=== PATIENT | female | born 1970 | race American Indian/Alaskan Native ===

== ENCOUNTER 2017-09-09 13:18 | Emergency (ER) | payer MEDICAID ==
[2017-09-09 13:39] VITALS: BMI 54.8
--- NOTE | 2017-09-09 17:55 | RAD ---
PROCEDURE: Right Knee Radiographs. HISTORY: knee pain COMPARISON: None. FINDINGS: BONES: Normal. No fracture. JOINTS: Normal. No osteoarthritis. JOINT EFFUSION: None. OTHER FINDINGS: None. IMPRESSION: Normal radiographs of the right knee.
[2017-09-09] MEDS ORDERED: Oxycodone/Acetaminophen 5/325 mg Tab PO STA (18:07)
--- NOTE | 2017-09-09 20:29 | CT ---
EXAM: CT Right Lower Extremity Without Intravenous Contrast, Knee EXAM DATE/TIME: 09/09/2017 6:19 PM CLINICAL HISTORY: The patient age is 46 years old and is female; Pain; Knee; Right; Additional info: Right knee pain/ inability to ambulate Facility exam id and description: Ct extlowsr ext lower w/o contrast right TECHNIQUE: Axial computed tomography images of the right knee without intravenous contrast. All CT scans at this facility use one or more dose reduction techniques, viz.: automated exposure control; ma/kV adjustment per patient size (including targeted exams where dose is matched to indication; i.e. head); or iterative reconstruction technique. Coronal and sagittal reformatted images were created and reviewed. COMPARISON: DX - KNEE W PATELLA RIGHT 3 VIEW 2017-09-09 16:18 FINDINGS: Bones/joints: There is no acute fracture or dislocation of the right knee. There is a small patellofemoral joint effusion. A small ossicle is visualized posterior to the knee. There is a decrease in height of the medial compartment with spurring, consistent with degenerative change. There is mild degenerative spurring in the lateral compartment of the knee. Soft tissues: There is mild soft tissue swelling anterior to the patella and patellar tendon. No significant Randhawa's cyst is visualized. CT is suboptimal for the evaluation of ligaments, tendons, and menisci. Vasculature: Venous varicosities are visualized. IMPRESSION: 1. There is no acute fracture or dislocation of the right knee. 2. There is a small patellofemoral joint effusion. 3. Degenerative changes are noted above. 4. There is mild soft tissue swelling anterior to the patella and patellar tendon. 5. Incidental/non-acute findings are described above.
--- NOTE | 2017-09-09 20:50 | ED PDOC ---
Arrival/HPI - General Chief Complaint: Lower Extremity Problem/Injury Time Seen by Provider: 09/09/17 14:21 Historian: Patient - History of Present Illness Narrative History of Present Illness (Text): 09/09/17 20:45 46-year-old female presents today with right knee pain. Patient says she's been having pain to the right knee recently. Patient states she started exercising more. Patient states when she was running on the treadmill last week she noticed that she had some pain to the right knee. Patient states the pain worsened yesterday when she was trying to do jumping jacks. Patient states she felt as if the knee gave out causing her to fall. Patient states she did not land on the knee. Patient denies numbness weakness or tingling in the extremity. Patient states due to the severe pain she is unable to walk well. Patient took Motrin for pain at home without improvement. Patient denies calf pain. Denies hip pain. Denies chest pain or shortness of breath. Patient denies any other complaints. Past Medical History - Provider Review Nursing Documentation Reviewed: Yes - Travel History Have you recently traveled outside [place] w/in the past 3 mons?: No - Tetanus Immunization Tetanus Immunization: Unknown - Cardiac Hx Atrial Fibrillation: Yes - Pulmonary Hx Asthma: Yes Hx Bronchitis: Yes Hx Pneumonia: Yes - Neurological Hx Neurological Disorder: No - HEENT Hx HEENT Disorder: No - Renal Hx Renal Disorder: No - Endocrine/Metabolic Hx Endocrine Disorders: No - Hematological/Oncological Hx Blood Disorders: No - Integumentary Hx Dermatological Disorder: No - Musculoskeletal/Rheumatological Hx Musculoskeletal Disorders: No - Gastrointestinal Hx Gastrointestinal Disorders: No - Genitourinary/Gynecological Hx Genitourinary Disorders: No - Psychiatric Hx Psychophysiologic Disorder: No Hx Substance Use: No Family/Social History - Physician Review Nursing Documentation Reviewed: Yes Family/Social History: Unknown Family HX Smoking Status: Never Smoked Hx Alcohol Use: No Hx Substance Use: No Allergies/Home Meds Allergies/Adverse Reactions: Allergies No Known Allergies Allergy (Verified 09/09/17 13:39) Home Medications: Home Meds Medication Instructions Recorded Confirmed Albuterol Sulfate [Proventil Hfa] 0 mg IH DAILY 09/09/17 09/09/17 Review of Systems - Review of Systems Constitutional: absent: Fatigue, Fevers Respiratory: absent: SOB, Cough Cardiovascular: absent: Chest Pain, Palpitations Gastrointestinal: absent: Abdominal Pain, Nausea, Vomiting Musculoskeletal: Arthralgias Skin: absent: Rash, Pruritis Neurological: absent: Headache, Dizziness Psychiatric: absent: Anxiety, Depression Physical Exam Vital Signs Reviewed: Yes Vital Signs Temp Pulse Resp BP Pulse Ox 09/09/17 13:40 98.3 F 81 19 128/82 97 Temperature: Afebrile Blood Pressure: Normal Pulse: Regular Respiratory Rate: Normal Appearance: Positive for: Well-Appearing, Non-Toxic, Comfortable Pain Distress: None Mental Status: Positive for: Alert and Oriented X 3 - Systems Exam Head: Present: Atraumatic Mouth: Present: Moist Mucous Membranes Neck: Present: Normal Range of Motion Respiratory/Chest: Present: Clear to Auscultation Cardiovascular: Present: Regular Rate and Rhythm Upper Extremity: Present: Normal Inspection, Normal ROM Lower Extremity: Present: Normal Inspection, NORMAL PULSES, Tenderness (right knee; + ttp over anterior medial aspect of the knee; minimal edema; no erythema ; no ecchymosis; limited flexion of the knee. no posterior knee tenderness. no ttp over distal femur. pelvis stable. ), Swelling, Neurovascularly Intact, Capillary Refill < 2 s. No: CALF TENDERNESS, Normal ROM, Erythema, Deformity, Temperature Abnormalties Neurological: Present: GCS=15, Speech Normal Skin: Present: Warm, Dry, Normal Color. No: Rashes Psychiatric: Present: Alert, Oriented x 3 Medical Decision Making ED Course and Treatment: 09/09/17 20:50 Patient nontoxic well-appearing in no distress with stable vital signs. Patient complaining of severe right knee pain status post injury yesterday Toradol given for pain without improvement. X-rays of the knee: No fracture Patient reassessment: Patient still with continued pain to the knee. Morphine added. Patient states she is unable to ambulate will do CAT scan of the need to rule out occult fracture. CAT scan of the right knee:FINDINGS: Bones/joints: There is no acute fracture or dislocation of the right knee. There is a small patellofemoral joint effusion. A small ossicle is visualized posterior to the knee. There is a decrease in height of the medial compartment with spurring, consistent with degenerative change. There is mild degenerative spurring in the lateral compartment of the knee. Soft tissues: There is mild soft tissue swelling anterior to the patella and patellar tendon. No significant Randhawa's cyst is visualized. CT is suboptimal for the evaluation of ligaments, tendons, and menisci. Vasculature: Venous varicosities are visualized. IMPRESSION: 1. There is no acute fracture or dislocation of the right knee. 2. There is a small patellofemoral joint effusion. 3. Degenerative changes are noted above. 4. There is mild soft tissue swelling anterior to the patella and patellar tendon. 5. Incidental/non-acute findings are described above. Patient reassessment: After morphine the patient is feeling much better. Patient with improved range of motion of the knee. pt placed in knee immobilizer. Crutches given for ambulation [employer] aware reviewed; pt without prior hx of narcotic usage. I discussed all results with patient advised to followup with the orthopedist for the next 2 days. Return if symptoms worsen persist or new symptoms develop i advised the patient that although the xrays show no fracture; there is still a possibility for ligamentous or tendon injury the patient must see the orthopedist for further evaluation. Patient verbalizes understanding of discharge instructions and need for immediate followup. all aspects of this case were discussed the attending of record. Impression: knee pain Motrin every 6 hours as needed for pain percocet; 1 tablet every 6 hours as needed for moderate to severe pain; may cause drowsiness. Rest, ice, compression, elevation Use crutches for ambulation Followup with the orthopedist within the next 2 days Followup with primary care physician within the next 2 days Return if symptoms worsen persist or if new symptoms develop Reassessment Condition: Re-examined, Improved - RAD Interpretation Radiology Orders: 09/09/17 14:22 KNEE W PATELLA RIGHT 3 VIEW [RAD] Stat 09/09/17 18:19 EXT LOWER W/O CONTRAST RIGHT [CT] Stat - Medication Orders Current Medication Orders: Discontinued Medications Ketorolac Tromethamine (Toradol) 60 mg IM STAT STA Stop: 09/09/17 14:23 Last Admin: 09/09/17 15:26 Dose: 60 mg ESE Pain Assessment Document 09/09/17 15:26 MS (Rec: 09/09/17 15:27 MS [id number]) Pain Reassessment Is this a pain reassessment? No Sleep Is patient sleeping during reassessment? No Presence of Pain Presence of Pain Yes Pain Scale Used Pain Scale Used Numeric Location Left, Right or Bilateral Right Pain Location Body Site Knee Description Description Intermittent Intensity of Pain at present 7 Pain Behavior Guarding Grasping Site Aggravating Factors Exercise/Activity Walking IM Administration Charges Document 09/09/17 15:26 MS (Rec: 09/09/17 15:27 MS [id number]) Injection Site MAR Injection Site Right Deltoid Charges for Administration # of IM Administrations 1 Morphine Sulfate (Morphine) 2 mg IM STAT STA Stop: 09/09/17 19:58 Last Admin: 09/09/17 19:30 Dose: 2 mg MAR Pain Assessment Document 09/09/17 19:30 MS (Rec: 09/09/17 20:15 MS [id number]) Pain Reassessment Is this a pain reassessment? Yes Sleep Is patient sleeping during reassessment? No Presence of Pain Presence of Pain Yes Location Left, Right or Bilateral Left Pain Location Body Site Leg Description Description Constant Intensity of Pain at present 8 Pain Behavior Moaning IM Administration Charges Document 09/09/17 19:30 MS (Rec: 09/09/17 20:15 MS [id number]) Injection Site MAR Injection Site Right Deltoid Charges for Administration # of IM Administrations 1 Disposition/Present on Arrival - Present on Arrival Any Indicators Present on Arrival: No History of DVT/PE: No History of Uncontrolled Diabetes: No Urinary Catheter: No History of Decub. Ulcer: No History Surgical Site Infection Following: None - Disposition Have Diagnosis and Disposition been Completed?: Yes Diagnosis: Knee pain, acute Disposition: HOME/ ROUTINE Disposition Time: 20:53 Patient Plan: Discharge Condition: GOOD Discharge Instructions (ExitCare): Knee Pain Additional Instructions: Motrin every 6 hours as needed for pain percocet; 1 tablet every 6 hours as needed for moderate to severe pain; may cause drowsiness. Rest, ice, compression, elevation Use crutches for ambulation Followup with the orthopedist within the next 2 days Followup with primary care physician within the next 2 days Return if symptoms worsen persist or if new symptoms develop Prescriptions: Ibuprofen [Motrin] 600 mg PO Q6H PRN #20 tab PRN Reason: pain/fever reduction oxyCODONE/Acetaminophen [Percocet 5/325 mg Tab] 1 tab PO Q6H PRN #10 tab PRN Reason: moderate to severe pain Referrals: Delvis Breaux MD [Staff Provider] - Follow up with primary Bigg Lomas DO [Staff Provider] - Follow up with primary Hali Cedillo MD [Staff Provider] - Follow up with primary Fernando Forde MD [Staff Provider] - Follow up with primary [facility] [place] [Outside] - Follow up with primary [facility] [place] [Outside] - Follow up with primary
[2017-09-09 21:15] VITALS: O2SAT 99
[2017-09-09 21:16] VITALS: BP 132/84; PULSE 86; RESP 18; TEMP 97.8
== END 2017-09-09 21:25 | disposition home or self-care (01) ==
LOC: MERGE 13:18 → ED 13:18
DX: M25.561 Pain in right knee (principal); I48.91 Unspecified atrial fibrillation
CPT/HCPCS: 73562; 73700; 96372; 99284; J1885; J2270